=== PATIENT | male | born 1950 | race Caucasian/White ===

== ENCOUNTER 2024-09-08 09:08 | Observation (INO) ==
--- NOTE | 2024-08-31 09:55 | Anesthesiology Consultation ---
Date of Service August 31, 2024 Assessment & Plan (1) Encounter for pre-operative examination: - Infectious disease screening: Per assessment on 08/30/24- No known recent infectious disease contacts. Patient reports URI symptoms including cough/chills onset 08/05/24 which are improving but not resolved. Symptom onset > 10 days from upcoming surgery. Patient was advised to contact PAT/surgeon if not at baseline prior to surgery. - Cardiology visit (07/20/24): "Short of breath walking around the house.. progressing over the course of the last several months.. Start Imdur and proceed with left heart catheterization.. Mitral regurgitationmild, monitor.. Dyslipidemiawith clinical ASCVD.. Continue Crestor.. Hypertensionbenign essential, controlled.." Subsequent cardiac cath performed and reviewed by director athletic 07/25/24- 1 vessel CAD with patent FRANK to LAD. Medical therapy recommended and patient advised to f/u with cardio in one year. - Patient acceptable risk for given surgery pending evaluation DOS. Chart Review Chart Review: Patient NOT seen in Pre Admission Testing History Surgery Operation Date: 09/08/24 07:15 Proposed Procedures p TURP (Transurethral Resection of Prostate) - True Parisi MD Height/Weight Height: 6 ft Weight: 95.708 kg Allergies Allergy/AdvReac Type Severity Reaction Status Date / Time No Known Allergies Allergy Verified 08/30/24 14:02 Medications Home Medications Medication Instructions Recorded Confirmed Last Taken aspirin 81 mg tablet,delayed 81 mg PO QAM 05/31/19 08/30/24 07/06/19 release (Ecotrin Low Strength) tamsulosin 0.4 mg capsule 0.4 mg PO BID 05/31/19 08/30/24 07/06/19 losartan 50 mg tablet 50 mg PO QAM 06/21/24 08/30/24 Unknown metoprolol succinate 25 mg 25 mg PO QAM 06/21/24 08/30/24 Unknown tablet,extended release 24 hr rosuvastatin 40 mg tablet 40 mg PO QAM 06/21/24 08/30/24 Unknown finasteride 5 mg tablet 5 mg PO QPM 08/30/24 08/30/24 Unknown Past Medical History Medical History (Updated 08/31/24 @ 09:50 by Caridad Prieto) Benign localized prostatic hyperplasia with lower urinary tract symptoms (LUTS) Black lung disease "Stage one" CAD (coronary artery disease) CABG x1 (02/2019), CHAYA RPDA (03/2019) History of colon cancer s/p colon resection + chemo (?2004) HLD (hyperlipidemia) Hypertension Past Family History Family History Brother Hypertension Cancer Heart disease Myocardial infarction Father Bladder cancer Denies family history of Ovarian cancer Prostate cancer Breast cancer Colorectal cancer Past Surgical History Surgical History (Updated 08/31/24 @ 09:49 by Caridad Prieto) H/O carpal tunnel repair R/L H/O heart bypass surgery CABG x1 (02/2019), CHAYA RPDA (03/2019) History of back surgery Discectomy lumbar History of cardiac catheterization 06/2024- no stents, medical management recommended History of colon surgery Resection History of hernia repair History of left knee surgery History of right knee surgery Social History Smoking Status: Never smoker Smoking cigarettes per day: chews herbal product not tobacco Do You Dip or Chew Tobacco: Yes Hx Alcohol Use: No Hx Substance Use: No substance use type: does not use Lab Results Anesthesia Preop Results Results Anesthesia Widget: WBC 6.86 K/uL (4.8-10.8) 08/10/24 Hgb 13.9 g/dL (14.0-18.0) L 08/10/24 Hct 41.7 % (42.0-52.0) L 08/10/24 Plt 171 K/uL (130.0-400.0) 08/10/24 Na 131 mmol/L L 08/10/24 K 4.0 mmol/L (3.5-5.1) 08/10/24 Cl 100 mmol/L (98-107) 08/10/24 CO2 28.3 mmol/L (21-32) 08/10/24 BUN 22.4 mg/dL H 08/10/24 Creat 0.88 mg/dL (0.6-1.4) 08/10/24 Glucose Level 105 mg/dL (70-99) H 08/10/24 Testing Laboratory Results Urine culture (08/10/24): 100,000 CFUs/ml Streptococcus viridans group, no sensitivity performed Electrocardiogram Date: 08/10/24 SR with sinus arrhythmia at 79bpm. NS ST/TWA. Chest X-Ray Date: 08/10/24 No acute airspace opacities are seen. Echocardiogram Date: 06/23/24 LVEF 55-60%. Mild MR/TR. Grade 1 diastolic dysfunction. Cardiac Catheterization Date: 07/25/24 Significant single vessel CAD. Patent FRANK to LAD. Normal LV systolic function. Recommendations: Medical therapy and aggressive risk factor modification.
[2024-09-08] MEDS ORDERED: ATROPINE SULFATE 0.1 MG/ML 10ML SYR IV PRN (09:20)
[2024-09-08] MEDS ORDERED: HYDROmorphone INJ 1 MG/ML SYRINGE IV PRN (09:20)
[2024-09-08] MEDS ORDERED: ONDANSETRON INJ 2 MG/ML 2 ML VIAL IV PRN (09:20)
[2024-09-08] MEDS ORDERED: fentaNYL citrate PF 100 MCG/2 ML VIAL IV PRN (09:20)
[2024-09-08] MEDS ORDERED: ePHEDrine sulfate 50 MG/ML AMP IV PRN (09:20)
[2024-09-08] MEDS: LACTATED RINGER'S 1,000 ML IV SCH (09:38)
--- NOTE | 2024-09-08 09:39 | Anesthesiology Consultation ---
Date of Service September 08, 2024 Assessment & Plan Chart Review Chart Review: Acceptable Risk for Surgery Consults Requested none ASA ASA2 Proposed Anesthesia Anesthesia Type: General History Surgery Operation Date: 09/08/24 10:30 Proposed Procedures p TURP (Transurethral Resection of Prostate) - True Parisi MD Height/Weight Height: 6 ft Weight: 95.844 kg Allergies Allergy/AdvReac Type Severity Reaction Status Date / Time No Known Allergies Allergy Verified 09/08/24 09:32 Medications Home Medications Medication Instructions Recorded Confirmed Last Taken aspirin 81 mg tablet,delayed 81 mg PO QAM 05/31/19 09/06/24 09/01/24 13:07 release (Ecotrin Low Strength) tamsulosin 0.4 mg capsule 0.4 mg PO BID 05/31/19 09/06/24 07/06/19 losartan 50 mg tablet 50 mg PO QAM 06/21/24 09/06/24 Unknown metoprolol succinate 25 mg 25 mg PO QAM 06/21/24 09/06/24 Unknown tablet,extended release 24 hr rosuvastatin 40 mg tablet 40 mg PO QAM 06/21/24 09/06/24 Unknown finasteride 5 mg tablet 5 mg PO QPM 08/30/24 09/06/24 Unknown albuterol sulfate 90 mcg/actuation 2 puff inhalation Q6H PRN 09/06/24 09/06/24 Unknown aerosol inhaler shortness of breath or wheezing #8.5 grams NPO Last Intake of Fluids Comment: NPO past MN Past Medical History Medical History Black lung disease "Stage one" Benign localized prostatic hyperplasia with lower urinary tract symptoms (LUTS) CAD (coronary artery disease) CABG x1 (02/2019), CHAYA RPDA (03/2019) HLD (hyperlipidemia) Hypertension History of colon cancer s/p colon resection + chemo (?2004) Exercise / Class Metabolic Activity II 4-5 Yardwork/Stairs/Walk up hill Past Family History Family History Brother Hypertension Cancer Heart disease Myocardial infarction Father Bladder cancer Denies family history of Ovarian cancer Prostate cancer Breast cancer Colorectal cancer Past Surgical History Surgical History History of cardiac catheterization 06/2024- no stents, medical management recommended H/O carpal tunnel repair R/L History of hernia repair History of left knee surgery History of right knee surgery History of colon surgery Resection History of back surgery Discectomy lumbar H/O heart bypass surgery CABG x1 (02/2019), CHAYA RPDA (03/2019) Past Anesthesia History No Hx of Anesthesia Complications History of PONV No Hx of PONV Social History Smoking Status: Never smoker Smoking cigarettes per day: chews herbal product not tobacco Do You Dip or Chew Tobacco: Yes (chews herbal snuff) Hx Alcohol Use: No Hx Substance Use: No substance use type: does not use Review of Systems No CP, SOB, PND or orthopnea ROS Unobtainable: All systems reviewed & are unremarkable except as noted in Subjective Physical Exam Constitutional no acute distress ENMT Mouth: + dentures (Full ) Thyromental Distance: > or= 3.5 Finger Breadths Mallampati Class: II Neck normal visual inspection Respiratory normal respiratory effort Auscultation: lungs clear to auscultation bilaterally Cardiovascular Rate/Rhythm: regular rate Testing Electrocardiogram Date: 08/10/24 SR with sinus arrhythmia at 79bpm. NS ST/TWA. Chest X-Ray Date: 08/10/24 No acute airspace opacities are seen. Echocardiogram Date: 06/23/24 LVEF 55-60%. Mild MR/TR. Grade 1 diastolic dysfunction. Cardiac Catheterization Date: 07/25/24 Significant single vessel CAD. Patent FRANK to LAD. Normal LV systolic function. Recommendations: Medical therapy and aggressive risk factor modification.
[2024-09-08] MEDS ORDERED: fentaNYL citrate PF 100 MCG/2 ML VIAL ONE ×2 (09:43→11:14)
--- NOTE | 2024-09-08 10:30 | History & Physical Report ---
Date of Service September 08, 2024 Assessment & Plan (1) Benign localized prostatic hyperplasia with lower urinary tract symptoms (LUTS): Plan: BPH w/ symptoms - max meds without relief - intravesical median lobe - plan for TURP now - risks, benefits, and expectations reviewed History of Present Illness Primary Care Provider: Domingo Garcia DO 73y/o male w/ significant voiding dysfunction and enlargement of the prostate here today for TURP to definitively address his symptoms Allergies Allergy/AdvReac Type Severity Reaction Status Date / Time No Known Allergies Allergy Verified 09/08/24 09:32 Home Medications Medication Instructions Recorded Confirmed Type aspirin 81 mg tablet,delayed 81 mg PO QAM 05/31/19 09/08/24 History release (Ecotrin Low Strength) tamsulosin 0.4 mg capsule 0.4 mg PO BID 05/31/19 09/08/24 History losartan 50 mg tablet 50 mg PO QAM 06/21/24 09/08/24 History metoprolol succinate 25 mg 25 mg PO QAM 06/21/24 09/08/24 History tablet,extended release 24 hr rosuvastatin 40 mg tablet (Crestor) 40 mg PO QAM 06/21/24 09/08/24 History finasteride 5 mg tablet (Proscar) 5 mg PO QAM 08/30/24 09/08/24 History albuterol sulfate 90 mcg/actuation 2 puff inhalation Q6H PRN 09/06/24 09/08/24 Rx aerosol inhaler shortness of breath or wheezing #8.5 grams Past Med/Surg History Problem List Dyspnea on exertion Encounter for pre-operative examination HLD (hyperlipidemia) HTN (hypertension) CAD (coronary artery disease) Benign localized prostatic hyperplasia with lower urinary tract symptoms (LUTS) Medical History Black lung disease "Stage one" Benign localized prostatic hyperplasia with lower urinary tract symptoms (LUTS) CAD (coronary artery disease) CABG x1 (02/2019), CHAYA RPDA (03/2019) HLD (hyperlipidemia) Hypertension History of colon cancer s/p colon resection + chemo (?2004) Surgical History History of cardiac catheterization 06/2024- no stents, medical management recommended H/O carpal tunnel repair R/L History of hernia repair History of left knee surgery History of right knee surgery History of colon surgery Resection History of back surgery Discectomy lumbar H/O heart bypass surgery CABG x1 (02/2019), CHAYA RPDA (03/2019) Family History Brother Hypertension Cancer Heart disease Myocardial infarction Father Bladder cancer Denies family history of Ovarian cancer Prostate cancer Breast cancer Colorectal cancer Social History (Updated 09/06/24 @ 13:11 by Natalie Freitas LPN) Smoking Status: Never smoker Cigarettes Per Day: chews herbal product not tobacco; Second Hand Exposure: No; Do You Dip or Chew Tobacco: Yes (chews herbal snuff); Tobacco Cessation Education Requested by Patient: No Hx Alcohol Use: No Hx Substance Use: No Preferred Language: Marshallese Communication Ability: Effective Visual Impairment: No Limitations Hearing Ability: Use of Hearing Aid Molecular Biologist Required: No Beliefs That Will Affect Care: None marital status: Current Living Situation: Spouse current occupational status: retired Other Information That Helps Us Care for You: No Feels Safe at Home: Yes Safety Concerns: Feels Safe At This Time Diet: regular Diet Comment: regular caffeine: Yes during the past year weight has: remained stable Dental Care, Regularly: No Physical Activity Frequency: Daily Seatbelt Use: always Sunscreen Use: No Assistive Devices: Contacts, Denture - Upper, Denture - Lower, Glasses, Hearing Aid - Left and Hearing Aid - Right Physical Exam Constitutional: well developed and well nourished Neck: neck nontender Respiratory: normal respiratory effort; no respiratory distress and does not use accessory muscles Cardiovascular: Rate/Rhythm: regular rate Vessels: radial pulses present Extremities: no edema Gastrointestinal (Abdomen): Inspection/Auscultation: abdomen normal to inspection Percussion/Palpation: abdomen soft; abdomen nontender and no guarding Musculoskeletal: Head/Neck/Chest: normocephalic and head atraumatic Extremities: extremities normal to inspection Skin: no rashes and no lesions Trauma: no evidence of skin trauma Neurologic: awake; not obtunded Speech / Cognition: normal speech Motor/Sensory: no tremor Psychiatric: Orientation: alert and oriented x 3 Genitourinary: no CVA tenderness Lymphatic: no lymphadenopathy Results & Data Vital Signs (Past 12 Hours) Vital Signs Temp Pulse Resp BP Pulse Ox O2 Del Method 09/08/24 09:39 36.7 C 80 20 150/88 H 98 Room Air
[2024-09-08] MEDS: CIPROFLOXACIN / D5W 400 MG/200 ML BAG IV SCH (10:49)
[2024-09-08] MEDS ORDERED: DEXAMETHASONE SOD INJ 4 MG/ML VIAL ONE (11:09)
[2024-09-08] MEDS ORDERED: PROPOFOL IV EMULSION 10 MG/ML 20 ML VIAL IV ONE ×2 (11:09→11:14)
[2024-09-08] MEDS ORDERED: ONDANSETRON INJ 2 MG/ML 2 ML VIAL ONE (11:09)
[2024-09-08] MEDS ORDERED: LIDOCAINE 2% 2 ML VIAL/AMP(20MG/ML) INFIL ONE (11:09)
[2024-09-08] MEDS ORDERED: DexMEDEtomidine HCL IV 100 MCG/ML VIAL IV ONE (11:32)
[2024-09-08] MEDS ORDERED: SODIUM CHLORIDE 0.9% PF INJ 10 ML VIAL ONE (11:38)
--- NOTE | 2024-09-08 12:01 | Operative Report ---
PG Post Operative Report Pre & Post Diagnosis Operation Date: 09/08/24 10:30 Pre-Op Diagnosis: Benign Prostatic Hyperplasia with Lower Urinary Tract Symptoms Post-Op Diagnosis: Benign Prostatic Hyperplasia with Lower Urinary Tract Symptoms I identified the patient and participated in the time-out.: Yes Procedure Operation Date: 09/08/24 10:30 Actual Procedures p Transurethral Resection of Prostate - True Parisi MD Surgeon True Parisi MD Client Support Consultant none Estimated Blood Loss 10 Findings Consistent with Post-Op Diagnosis Specimens Prostate chips for routine pathology Description of Procedure The patient was identified in the preoperative holding area, appropriate informed consents were reviewed and completed and the patient was transferred to the operative suite. Upon arrival, appropriate antibiotics and anesthesia were administered and the patient was placed in dorsal lithotomy position and prepped and draped in sterile fashion. To begin the case I passed 26 Greenlandic resectoscope with 30 degree lens and visual after repair inspection revealed a healthy-appearing urethra and an enlarged prostate with an intravesical median lobe and intrusion. There were numerous superficial vessels scattered across the prostate that were quite prominent. I was able to identify the ureteral orifices and determine the location of the true bladder neck. I utilized a loop electrode and began resecting the bladder neck. I eliminated the intravesical portion of the prostate before resecting the left lateral lobe and then the right lateral lobe. There was a substantial amount of redundant anterior tissue which was also resected before I trimmed the apical tissue. I obtained meticulous hemostasis and evacuated all chips from the bladder. I placed a 22 Greenlandic 30 cc Castro catheter without difficulty. The case was concluded and he was reversed of anesthesia and taken to the recovery room in stable condition. There were no complications I attest to the content of the Intraoperative Record and any orders documented therein. Any exceptions are noted below.
--- NOTE | 2024-09-08 12:52 | Anesthesiology Progress Note ---
Date of Service September 08, 2024 Anesthesia Post Procedure Vital Signs Vital Signs: Temp Pulse Pulse Resp BP Pulse Ox O2 Del Method 09/08/24 12:50 65 15 137/68 96 Room Air 09/08/24 12:40 36.6 C 62 17 118/77 96 Room Air 09/08/24 12:30 67 18 108/67 95 Room Air 09/08/24 12:20 67 16 125/79 97 Oxymask 09/08/24 12:10 70 16 121/81 98 Oxymask 09/08/24 12:04 36.1 C L 77 15 133/77 97 Oxymask 09/08/24 09:39 36.7 C 80 20 150/88 H 98 Room Air O2 Flow Rate 09/08/24 12:50 09/08/24 12:40 09/08/24 12:30 09/08/24 12:20 3 09/08/24 12:10 6 09/08/24 12:04 10 09/08/24 09:39 Notes Mental Status: alert / awake / arousable Nausea / Vomiting: adequately controlled Pain: adequately controlled Airway Patency, RR, SpO2: stable & adequate BP & HR: stable & adequate Hydration State: stable & adequate Anesthetic Complications: no major complications apparent
[2024-09-08] MEDS ORDERED: traMADol HCL 50 MG TABLET PO PRN (13:25)
[2024-09-08] MEDS ORDERED: ACETAMINOPHEN 325 MG TAB PO PRN (13:25)
[2024-09-08] MEDS ORDERED: ALBUTEROL HFA 8 GM INHALER INH PRN (13:25)
[2024-09-08 14:51] VITALS: RESP 18
[2024-09-09 07:28] VITALS: BP 148/62; PULSE 62; TEMP 98.1; O2SAT 96
[2024-09-09 08:21] LABS: Hematocrit (blood only) 38.3 % (42.0-52.0); Hemoglobin 12.7 g/dl (14.0-18.0); Mean Corpuscular Hemoglobin 28.6 pg (25.0-34.0); Mean Corpuscular Hgb Conc 33.2 g/dL (32.0-36.0); Mean Corpuscular Volume 86.3 fL (80.0-100.0); Mean Platelet Volume 9.7 fL (9.4-12.4); Platelet Count 293 K/uL (130-400); RDW Coefficient of Variation 13.3 % (11.5-14.5); RDW Standard Deviation 41.7 fL (36.4-46.3); Red Blood Count 4.44 M/uL (4.70-6.10); White Blood Count 16.55 K/ul (4.8-10.8)
[2024-09-09 08:32] LABS: BUN Creatinine Ratio 27.5 (10-20); Calcium 9.4 mg/dl (8.6-10.3); Creatinine Clr Calc Pharmacy 100.3 ml/min; Potassium 4.3 mmol/L (3.5-5.1)
[2024-09-09 08:48] LABS: Basophils # (auto) 0.02 K/uL (0.00-0.20); Basophils % (auto) 0.1 %; Immature Granulocytes # (auto) 0.13 K/uL (0.01-0.20); Immature Granulocytes % (auto) 0.8 %; Lymphocytes # (auto) 0.75 K/uL (1.20-3.40); Lymphocytes % (auto) 4.5 %; Monocytes # (auto) 0.54 K/uL (0.11-0.59); Monocytes % (auto) 3.3 %; Neutrophils # (auto) 15.11 K/uL (1.40-6.50); Neutrophils % (auto) 91.3 %
[2024-09-09] MEDS: ROSUVASTATIN CALCIUM 20 MG TAB PO SCH (08:59)
[2024-09-09] MEDS: LOSARTAN POTASSIUM 50 MG TAB PO SCH (08:59)
[2024-09-09] MEDS: METOPROLOL SUCC 25MG EXT REL TAB PO SCH (08:59)
--- NOTE | 2024-09-09 09:23 | Urology Progress Note ---
Date of Service September 09, 2024 Assessment & Plan (1) Benign localized prostatic hyperplasia with lower urinary tract symptoms (LUTS): Plan Postop day #1 status post TURP Plan for voiding trial this morning and discharge home Admission and Anticipated Discharge Date Admission Date: September 08, 2024 Subjective No issues overnight Urine has been draining appropriately and is relatively clear No discomfort Physical Exam Physical Exam: Castro with minimal blood within the urine, good output Results & Data Vital Signs (Past 12 Hours) Vital Signs Temp Pulse Resp BP BP Pulse Ox O2 Del Method 09/09/24 07:27 36.7 C 62 18 148/62 H 96 Room Air 09/09/24 04:19 36.6 C 61 18 139/89 95 Room Air 09/08/24 23:32 36.6 C 61 18 116/66 96 Room Air PG Care Time/CCT Total # of Minutes Spent Total Time Spent with Patient: Total time spent is greater than 50% in coordination of care (as documented) at patient's floor/unit and/or counseling patient: Coding Level of Care Code None Diagnoses Benign localized prostatic hyperplasia with lower urinary tract symptoms (LUTS) N40.1
--- NOTE | 2024-09-09 09:24 | Discharge Summary ---
Date of Service September 09, 2024 Admission HPI Per Admitting Provider 73y/o male w/ significant voiding dysfunction and enlargement of the prostate here today for TURP to definitively address his symptoms Principal Diagnosis BPH Discharge Data Allergies Allergy/AdvReac Type Severity Reaction Status Date / Time No Known Allergies Allergy Verified 09/08/24 09:32 Procedures Performed Operation Date: 09/08/24 10:30 Actual Procedures p Cystoscopy, Transurethral Resection of Prostate - True Parisi MD s Cystoscopy - True Parisi MD Hospital Course (1) Benign localized prostatic hyperplasia with lower urinary tract symptoms (LUTS): Plan Patient underwent cystoscopy and TURP on 09/08/2024 Details of the procedure as dictated previously in the operative report. In summary, he tolerated the procedure extremely well. He progressed properly overnight and his catheter was removed on postoperative day #1. He voided and was discharged home. Total Time Total Time Spent Total Time Spent (In Minutes): 15 Discharge Plan Discharge Items Patient Disposition: Home - Self-Care Reason For Visit: BPH with Lower Urinary Tract Symptoms Discharge Diagnosis: BPH Activity: Resume your previous activity Lifting: Gradually increase as tolerated Bathing: No limitations Sexual Activity: When tolerated Exercise/Sports: Gradually increase as tolerated Non-emergency contact: Urologist Call non-emergency contact if: you have any medication questions, your pain is concerning for you, you have a fever and your temperature is above 101.5 Follow-up/Referrals: Domingo Garcia DO [Primary Care Provider] - Diet: Regular Addtl Attending Provider Instructions: Please continue your previous diet, take all medications as prescribed and keep follow-ups as scheduled. Please call our office at [phone] with any questions, concerns or need to reschedule appointments for any reason. We are happy to assist you. While catheter is in place, please wash with warm soapy water and a fresh washcloth twice a day with mild bar soap (Dove, Dial, etc.). Your nursing visit appointment to have your catheter removed should already be made, if you have any question regarding this, please call our office. Complete antibiotics as prescribed, if indicated. It is okay to take AZO (available over the counter) as needed for a few days to relieve burning with urination. This may cause your urine or feces to turn an orangish-color. This is expected. The only exception is if you have been prescribed Pyridium (phenazopyridine), this is the same medication and should not take AZO be taken in addition to prescription version. Please do not drive, drink alcohol or operate machinery while taking prescription pain medication. We recommend continuing a stool softener (i.e. Colace) to prevent constipation/straining for at least two weeks after your procedure. Some blood is to be expected in your urine as you heal, you may even see recurrences of blood in your urine for up to 4-6 months after your procedure. Drink plenty of fluids, avoid sexual or strenuous exercise and do not lift >25 pounds until your follow-up. Call [facility] [place] at [phone] promptly if you experience: Fever of 101F or greater Pain thats not controlled with medicine Trouble urinating or inability to urinate Dark, bloody urine for more than 12 hours Pending Studies at Discharge: No Stand-Alone Forms: My [facility], Smoking Cessation Medications and DC Order Prescriptions: New ciprofloxacin HCl [Cipro] 500 mg tablet 500 mg PO BID Qty: 6 0RF Continued rosuvastatin [Crestor] 40 mg tablet 40 mg PO QAM metoprolol succinate 25 mg tablet extended release 24 hr 25 mg PO QAM losartan 50 mg tablet 50 mg PO QAM albuterol sulfate 90 mcg/actuation HFA aerosol inhaler 2 puff inhalation Q6H PRN (Reason: shortness of breath or wheezing) Qty: 8.5 0RF Held aspirin [Ecotrin Low Strength] 81 mg tablet,delayed release (DR/EC) 81 mg PO QAM Hold Instructions: Resume on 09/11/24. Discontinued tamsulosin 0.4 mg capsule 0.4 mg PO BID finasteride [Proscar] 5 mg tablet 5 mg PO QAM Discharge Orders: Discharge Order (Routine); Ordered 09/09/24 Ordered By: True Parisi Admission Data Admit Date/Time: 09/08/24 11:59 Attending Provider: True Parisi Admit Provider: True Parisi Primary Care Provider: Domingo Garcia Coding Level of Care Code 32213 OBS Care - Discharge Diagnoses Benign localized prostatic hyperplasia with lower urinary tract symptoms (LUTS) N40.1
[2024-09-09] MEDS: PHENAZOPYRIDINE HCL 200 MG TAB PO ONE (11:40)
== END 2024-09-09 13:35 | disposition home or self-care (01) ==
LOC: PACUINP 09:08 → ASU 09:08 → 3W 14:26